=== PATIENT | male | born 1990 | race African-American/Black ===

== ENCOUNTER 2017-03-15 10:53 | Emergency (ER) | payer SELFPAY ==
[~2017-03-15] VITALS: Ht 188 cm; Wt 101.0 kg
[~2017-03-15 10:53] MED LIST: AMOX500C PO; AMOXSUS PO; IBUP1TAB7 PO; MEDR4PAK PO
[2017-03-15 10:55] VITALS: BP 144/76; PULSE 77; RESP 12; TEMP 98.2; O2SAT 98
--- NOTE | 2017-03-15 11:16 | PD ---
HPI Chief Complaint: Pain: Acute or Chronic Time Seen by Provider: 11:05 Travel History International Travel<30 days: No Contact w/Intl Traveler<30days: No Traveled to known affect area: No History of Present Illness HPI 26-year-old male presents to the emergency department complaining of pain to his tailbone for 3 days. States he has trouble sitting is of the pain. Patient states that he has never had this pain before and does not know what is going on. Patient denies drainage from the area. Patient is able to have bowel movements and urinate as usual without pain. Patient denies trauma, sitting for long periods of time. 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 Patient states that his father used to have many cysts in his gluteal region. Patient denies fever or chills. Denies abdominal pain or rectal pain. 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 Not interchangeable with 200 mg/5 mL or 400 mg/5 mL due to clavulanic acid. Reported Ibuprofen 800 Mg Tab 800 Mg PO Q6HR PRN Amoxicillin 500 Mg Cap 500 Mg PO BID Review of Systems Except as stated in HPI: all other systems reviewed are Neg Physical Exam Narrative GENERAL: Well developed well nourished in mild distress. Evaluated patient with a nurse in the room SKIN: Focused skin assessment warm/dry. HEAD: Atraumatic. Normocephalic. EYES: Pupils equal and round. No scleral icterus. No injection or drainage. ENT: No nasal bleeding or discharge. Mucous membranes pink and moist. NECK: Trachea midline. No JVD. CARDIOVASCULAR: Regular rate and rhythm. No murmur appreciated. RESPIRATORY: No accessory muscle use. Clear to auscultation. Breath sounds equal bilaterally. GASTROINTESTINAL: Abdomen soft, non-tender, nondistended. Hepatic and splenic margins not palpable. MUSCULOSKELETAL: No obvious deformities. No clubbing. No cyanosis. No edema. Right gluteus 2-3 cm from the anus- area of induration approximately 1 cm without fluctuance or obvious puncta. No extension into the anus. NEUROLOGICAL: Awake and alert. No obvious cranial nerve deficits. Motor grossly within normal limits. Normal speech. PSYCHIATRIC: Appropriate mood and affect; insight and judgment normal. Data Data Last Documented VS Vital Signs Date Time Temp Pulse Resp B/P (MAP) Pulse Ox O2 Delivery O2 Flow Rate FiO2 03/15/17 11:35 100 03/15/17 10:55 98.2 77 12 Orders Orders Ed Discharge Order (03/15/17 11:21) MDM Medical Decision Making Medical Screen Exam Complete: Yes Emergency Medical Condition: Yes Differential Diagnosis Pilonidal cyst, abscess, sialitis Narrative Course 26-year-old male presents to the emergency department complaining of pain to his tailbone for 3 days. States he has trouble sitting is of the pain. Patient states that he has never had this pain before and does not know what is going on. Patient denies drainage from the area. Patient is able to have bowel movements and urinate as usual without pain. Patient denies trauma, sitting for long periods of time. 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 Patient states that his father used to have many cysts in his gluteal region. Patient denies fever or chills. Denies abdominal pain or rectal pain. Vital Signs stable. Physical exam consistent with pilonidal cyst versus abscess. The area of induration and tenderness do not extend into the anal area. Because of patient's exquisite tenderness to the area, I will prescribe an antibiotic. There was no area of fluctuance or drainage. No evidence of spread across the gluteal area. Advised patient to monitor the area and take antibiotics as prescribed. I strongly advised patient to follow up with primary care physician within 2-3 days. I advised patient follow-up a general surgeon for possible excision. Patient understood and will comply. Diagnosis Primary Impression: Pilonidal cyst Referrals: [facility] Additional Instructions: Take medication as prescribed. Follow-up with primary care physician within 2-3 days. Recommend follow-up with a general surgeon for potential excision of the cyst. Scripts Sulfamethoxazole-Trimethoprim (Bactrim DS) 800-160 Mg Tab 1 TAB PO BID for Infection, #14 TAB 0 Refills Prov: Luis Kasper MD 03/15/17 Disposition: 01 DISCHARGE HOME Condition: Stable Leonila Carrillo Mar 15, 2017 11:16
[2017-03-15] MEDS ORDERED: BACT800T5 PO (11:17)
[2017-03-16] MEDS ORDERED: PERC5TAB12 PO (18:28)
== END 2017-03-15 11:39 | disposition home or self-care (01) ==
LOC: NEPD 10:53
DX: L05.91 Pilonidal cyst without abscess (principal)
CPT/HCPCS: 99283

== ENCOUNTER 2017-03-16 17:43 | Emergency (ER) | payer SELFPAY ==
[~2017-03-16] VITALS: Ht 188 cm; Wt 100.0 kg
[~2017-03-16 17:43] MED LIST changes: +BACT800T5 PO
[2017-03-16 17:46] VITALS: BP 136/81; PULSE 190; RESP 18
[2017-03-16] MEDS ORDERED: PERC5TAB12 PO (18:28)
--- NOTE | 2017-03-16 18:28 | PD ---
HPI Chief Complaint: Skin Problem Time Seen by Provider: 18:00 Travel History International Travel<30 days: No Contact w/Intl Traveler<30days: No Traveled to known affect area: No History of Present Illness HPI Patient's 26-year-old male presenting to emergency department for evaluation of a possible abscess. Patient states that he was seen and evaluated yesterday and prescribed antibiotics which she reports compliance with, despite this he to needs to have increasing pain. He states it's been going on for the last 3- 4 days, he denies any history of pilonidal cysts or abscesses. He denies any fevers, chills, nausea, vomiting, chest pain or shortness of breath. He states that he cannot sit on his buttocks or lay in certain positions. He reports his pain is a 9 out of 10 and states it is throbbing. 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 Appears uncomfortable, in no acute distress SKIN: Warm and dry. Area of fluctuance and tenderness to gluteal cleft, no erythema or induration noted. HEAD: Normocephalic. EYES: No scleral icterus. No injection or drainage. NECK: Supple, trachea midline. No JVD or lymphadenopathy. CARDIOVASCULAR: Regular rate and rhythm without murmurs, gallops, or rubs. RESPIRATORY: Breath sounds equal bilaterally. No accessory muscle use. GASTROINTESTINAL: Abdomen soft, non-tender, nondistended. MUSCULOSKELETAL: No cyanosis, or edema. BACK: Nontender without obvious deformity. No CVA tenderness. Data Data Last Documented VS Vital Signs Date Time Temp Pulse Resp B/P (MAP) Pulse Ox O2 Delivery O2 Flow Rate FiO2 03/16/17 17:50 89 16 03/16/17 17:46 136/81 (99) Orders Orders Wound Culture And Gram Stain (03/16/17 18:20) MDM Medical Decision Making Medical Screen Exam Complete: Yes Emergency Medical Condition: Yes Medical Record Reviewed: Yes Interpretation(s) Vital Signs Date Time Temp Pulse Resp B/P (MAP) Pulse Ox O2 Delivery O2 Flow Rate FiO2 03/16/17 17:50 89 16 03/16/17 17:46 190 18 136/81 (99) Differential Diagnosis Pilonidal cysts versus pilonidal abscess versus rectal abscess versus cellulitis versus other Narrative Course Patient presented for evaluation of pilonidal abscess, initial heart rate was charted at 190, patient was actually 89 upon arrival to the room. Patient appears well, please see procedure report for I&D. Patient was encouraged to return to emergency department 48 hours for reevaluation and to have packing removed. He was advised to continue antibiotics as previously prescribed. Culture is pending, antibiotics will be tailored pending that report. He is encouraged to take ibuprofen for pain medicine as needed and as directed, avoiding driving or operating machinery while on narcotic pain medication. He verbalized understanding of these instructions. Patient is stable for discharge. Procedures Procedure Narrative After the risks and benefits were discussed the following procedure was performed: INCISION AND DRAINAGE OF ABSCESS: The area was prepped and was sterilely draped. A subcutaneous wheal of 1 % Xylocaine with a total number 1 mL was used to anesthetize the area. The area was properly anesthetized. A number 11 scalpel was used to make a 1-cm incision across the area of the abscess. Cultures were obtained. The abscess was drained an irrigated with normal saline. Quarter inch iodoform packing was placed in the wound. Sterile dressing applied. Patient advised to have packing removed in two days. Diagnosis Primary Impression: Pilonidal abscess Referrals: Primary Care Physician Patient Instructions: Abscess (GEN), Abscess Follow-up (ED), Abscess Incision and Drainage (DC), General Instructions, Pilonidal Cyst (ED) Departure Forms: Tests/Procedures, Work Release Enter return to work date: Mar 18, 2017 Additional Instructions: Return to emergency department in 48 hours to have packing removed Continue antibiotics as previously prescribed Keep packing in place, change dressings twice daily and as needed for soiling Return to emergency department sooner for any new or worsening symptoms Do not drive or operate machinery while taking narcotic pain medication. Med/Other Pt SpecificInfo: Prescription(s) given Scripts Oxycodone-Acetaminophen (Percocet) 5-325 mg Tab 1 TAB PO Q6H Y for PAIN, #10 TAB 0 Refills Prov: Rachel Engel 03/16/17 Disposition: 01 DISCHARGE HOME Condition: Stable Rachel Engel Mar 16, 2017 18:28
[2017-03-16 18:50] VITALS: BP 120/78; TEMP 97.8
== END 2017-03-16 18:50 | disposition home or self-care (01) ==
LOC: NEPE 17:43
DX: L05.01 Pilonidal cyst with abscess (principal); F17.200 Nicotine dependence, unspecified, uncomplicated
CPT/HCPCS: 10080; 87070; 87205